=== PATIENT | female | born 1960 | race Caucasian/White ===

== ENCOUNTER → 2021-06-10 | Outpatient (CLI) | payer BC | LOC: KOH-I 08:39 | DX: J01.81 Other acute recurrent sinusitis (principal); J34.2 Deviated nasal septum | CPT/HCPCS: 70486 ==

== ENCOUNTER → 2021-11-05 | Outpatient (CLI) | payer BC ==
[~2021-11-05] MED LIST: MECLIZINE HCL25 MG PO; ZOFRAN ODT 4 MG4 MG SL
== END ==
LOC: HEART 5 11-02 09:30 → EXRD 11-02 10:00 → HEART 5 09:00
DX: R06.02 Shortness of breath (principal); R42 Dizziness and giddiness
CPT/HCPCS: 93306; 93880

== ENCOUNTER 2021-11-23 09:59 | Emergency (ER) | payer BC ==
[2021-11-23 11:27] LABS: HEMOGLOBIN 15.3 gm/dl (12.3-15.3); RED BLOOD COUNT 4.74 M/UL (4.00-5.10); WHITE BLOOD COUNT 8.1 K/UL (4.5-11.0)
[2021-11-23 12:13] LABS: BUN/CREATININE RATIO 22 (0-10)
[2021-11-23] MEDS ORDERED: TORADOL 10 MG T10 MG PO (14:00)
[2021-11-23] MEDS ORDERED: AFRIN15 M1 (14:00)
== END 2021-11-23 14:10 | disposition home or self-care (01) ==
LOC: ER1 09:59
DX: H81.01 Meniere's disease, right ear (principal); E78.5 Hyperlipidemia, unspecified
CPT/HCPCS: 70450; 80053; 81001; 82550; 82553; 84484; 85025; 93005; 96374; 96375; 99285; J1885; J2060

== ENCOUNTER → 2021-11-30 | Outpatient (CLI) | payer BC ==
[~2021-11-30] MED LIST changes: +AFRIN15 M1; +TORADOL 10 MG T10 MG PO
== END ==
LOC: MRI 08:54
DX: H90.41 Sensorineural hearing loss, unilateral, right ear, with unrestricted hearing on the contralateral side (principal)
CPT/HCPCS: 70553; A9577